=== PATIENT | female | born 2005 | race Caucasian/White ===

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

== ENCOUNTER 2024-05-12 10:36 | Emergency (ER) | payer BC, OTHER ==
[2024-05-12] MEDS ORDERED: IBUPROFEN 200 MG TAB PO ONE (11:11)
[2024-05-12] MEDS ORDERED: KETOROLAC 30 MG/ML INJ ONE (11:15)
[2024-05-12 11:28] LABS: Influenza A Ag Negative; Influenza B Ag Negative; SARS-CoV-2 Antigen Rapid Res Negative (Negative)
[2024-05-12] MEDS ORDERED: NA CHLORIDE 0.9% 1,000 ML ONE (11:35)
[2024-05-12 11:50] LABS: Absolute Lymphocytes (CBC) 0.8 K/uL (0.7-4.9); Absolute Monocytes 0.8 K/uL (0.1-1.3); Basophils % 0.2 % (0-1.3); Eosinophils % 0.1 % (0-4.4); Hemoglobin 14.9 g/dL (12.0-15.0); Lymphocytes % 5.4 % (15.3-44.8); MCH 29.4 pg (27.0-35.0); MCHC 33.7 g/dL (32.0-36.0); MPV 8.3 fL (7.6-11.3); Monocytes % 5.2 % (3.3-12.3); Neutrophils % 89.1 % (41.7-73.7); Nucleated Red Blood Cells % 0.1 % (0-0); Platelets 346 thou/uL (152-406); RBC Red Blood Cell Count 5.06 M/uL (3.86-4.86); Red Cell Distribution Width 13.5 % (12.1-15.2)
[2024-05-12 11:52] LABS: Specific Gravity 1.027 (1.005-1.030)
[2024-05-12 12:06] LABS: Albumin 3.9 g/dL (3.4-5.0); Albumin/Globulin Ratio 0.8 (1.1-1.8); Anion Gap 8.9 mEq/L (5.0-15.0); Bilirubin Total 0.9 mg/dL (0.2-1.0); Globulin 4.6 g/dL (2.3-3.5); Potassium 3.9 mEq/L (3.5-5.1); Protein, Total 8.5 g/dL (6.4-8.2)
[2024-05-12 12:26] LABS: Blood Morphology Comment NOT SEEN (NOT SEEN); Platelet Estimate ADEQ; Platelets Clumped FEW; White Blood Cell Scan OK (OK)
[2024-05-12] MEDS ORDERED: CLINDAMYCIN 600MG/D5W 50 ML IV ONE (13:21)
--- NOTE | 2024-05-12 13:36 | RAD REPORT ---
EXAM: CT Soft Tissue Neck W/Contr INDICATION: SWELLING TECHNIQUE: Helical CT examination of the neck with IV contrast. Not reported Sagittal and coronal ref ormations were generated. This exam was performed according to our departmental dose-optimization program, which includes automated exposure control, adjustment of the mA and/or kV according to patie nt size and/or use of iterative reconstruction technique. COMPARISON: None. FINDINGS: Mucosal spaces: Mild mucosal symmetric hyperenhancement of the palatine tonsils. No adjacent fluid co llections or fat stranding. Nasopharynx, oral cavity, larynx and hypopharynx are normal. No suspicious masses. Epiglottis is normal in configuration. True vocal cords cords are normally situate d. Piriform sinuses are well-aerated. Lymph Nodes: Prominent bilateral level 2A lymph nodes, measuring up to 1.2 cm in short axis on the le ft and 9 mm on the right. Salivary Glands: Unremarkable. Thyroid Gland: Normal Included Intracranial Structures: Normal Included Orbits: Normal Paranasal Sinuses: Predominantly clear Tympanomastoid Cavities: Normal Vascular Structures: Normal Osseous Structures: No acute osseous abnormality. Included Lung Apices: Normal IMPRESSION: Prominent bilateral discrete upper cervical lymph nodes, could be reactive or inflammatory. Mild mucosal symmetric hyperenhancement of the palatine tonsils, could reflect uncomplicated tonsilli tis.
--- NOTE | 2024-05-12 13:46 | EDPHYS ---
Physician Documentation [facility] Name: Mervat Mendez Age: 19 yrs Sex: Female : 2005 Arrival Date: 05/12/2024 Time: 10:36 Bed 11 Private MD: ED Physician Lindsey Castañeda HPI: 05/12 11:25 This 19 yrs old Female presents to ER via Ambulatory with complaints of Sore sp3 Throat, Dizziness, Low Back Pain, body aches, Headache. 11:25 19-year-old female with history of anxiety presents to the ED with chief complaint sore sp3 throat, throat swelling, difficulty swallowing, cough and congestion for the last 48 to 72 hours. She denies any fever, chest pain, shortness of breath, abdominal pain, vomiting, diarrhea, rash, known sick contacts, travel history, or any other signs or symptoms on ROS at this time.. 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 - Infectious Disease History:: Denies. - Social history:: Smoking status: Reported history of juuling and/or vaping. ROS: 11:25 Constitutional: Negative for fever, chills, and weight loss, Eyes: Negative for injury, sp3 pain, redness, and discharge, Neck: Negative for injury, pain, and swelling, Cardiovascular: Negative for chest pain, palpitations, and edema, Respiratory: Negative for shortness of breath, cough, wheezing, and pleuritic chest pain, Abdomen/GI: Negative for abdominal pain, nausea, vomiting, diarrhea, and constipation, Back: Negative for injury and pain, MS/Extremity: Negative for injury and deformity, Skin: Negative for injury, rash, and discoloration, Neuro: Negative for headache, weakness, numbness, tingling, and seizure, Psych: Negative for depression, anxiety, suicide ideation, homicidal ideation, and hallucinations, Allergy/Immunology: Negative for hives, rash, and allergies, Endocrine: Negative for neck swelling, polydipsia, polyuria, polyphagia, and marked weight changes, 11:25 All other systems are negative, Exam: 11:26 Constitutional: This is a well developed, well nourished patient who is awake, alert, sp3 and in no acute distress. Head/Face: Normocephalic, atraumatic. Eyes: Pupils equal round and reactive to light, extra-ocular motions intact. Lids and lashes normal. Conjunctiva and sclera are non-icteric and not injected. Cornea within normal limits. Periorbital areas with no swelling, redness, or edema. Neck: Trachea midline, no thyromegaly or masses palpated, and no cervical lymphadenopathy. Supple, full range of motion without nuchal rigidity, or vertebral point tenderness. No Meningismus. Chest/axilla: Normal chest wall appearance and motion. Nontender with no deformity. No lesions are appreciated. Cardiovascular: Regular rate and rhythm with a normal S1 and S2. No gallops, murmurs, or rubs. Normal PMI, no JVD. No pulse deficits. Respiratory: Lungs have equal breath sounds bilaterally, clear to auscultation and percussion. No rales, rhonchi or wheezes noted. No increased work of breathing, no retractions or nasal flaring. Abdomen/GI: Soft, non-tender, with normal bowel sounds. No distension or tympany. No guarding or rebound. No evidence of tenderness throughout. Back: No spinal tenderness. No costovertebral tenderness. Full range of motion. Skin: Warm, dry with normal turgor. Normal color with no rashes, no lesions, and no evidence of cellulitis. MS/ Extremity: Pulses equal, no cyanosis. Neurovascular intact. Full, normal range of motion. Neuro: Awake and alert, GCS 15, oriented to person, place, time, and situation. Cranial nerves II-XII grossly intact. Motor strength 5/5 in all extremities. Sensory grossly intact. Cerebellar exam normal. Normal gait. Psych: Awake, alert, with orientation to person, place and time. Behavior, mood, and affect are within normal limits. 11:26 ENT: Left-sided peritonsillar swelling with uvular shift. Patient still tolerating p.o. Mildly tachycardic.. Vital Signs: 10:49 BP 114 / 78; Pulse 108; Resp 16; Temp 98.9(O); Pulse Ox 100% on R/A; Weight 48.99 kg; hb Height 5 ft. 6 in. ; Pain 8/10; 14:02 BP 99 / 55; Pulse 100; Resp 16; Temp 98.3(O); Pulse Ox 99% on R/A; Pain 3/10; ll1 10:49 Body Mass Index 17.43 (48.99 kg, 167.64 cm) hb 10:49 Pain Scale: Adult hb 14:02 Pain Scale: Adult ll1 MDM: 10:46 Medical Screening Exam initiated sp3 11:26 Data reviewed: vital signs, nurses notes, lab test result(s), radiologic studies. ED sp3 course: 19-year-old female with sore throat and URI symptoms. Differential diagnosis includes peritonsillar abscess, tonsillitis, strep pharyngitis, influenza, COVID-19, among others. Workup include CT scan of the soft tissue neck, swabs and treatment with ketorolac and other medications as indicated. Disposition pending workup and patient course.. 13:45 ED course: CT demonstrates no abscess only localized tonsillitis and lymph node sp3 swelling. Patient getting 600 mg of clindamycin IV and will be discharged home on oral meds.. 05/12 10:47 Order name: Group A Streptococcus Rapid; Complete Time: 11:33 sp3 05/12 10:47 Order name: COVID-19 Ag + Flu A+B Ag; Complete Time: 11:33 sp3 05/12 11:32 Order name: CBC with Diff; Complete Time: 12:31 sp3 05/12 11:32 Order name: CMP; Complete Time: 12:09 sp3 05/12 11:32 Order name: Test, Urine; Complete Time: 12:09 sp3 05/12 12:26 Order name: CBC Smear Scan; Complete Time: 12:31 EDMS 05/12 11:25 Order name: Soft Tissue Neck W/Contr CT; Complete Time: 13:40 sp 05/12 11:32 Order name: IV Saline Lock; Complete Time: 11:45 sp3 05/12 11:32 Order name: Labs collected and sent; Complete Time: 11:45 sp3 Administered Medications: 11:19 Not Given (Other Intervention Used): [id number] mg PO once ss 11:45 Drug: NS 0.9% IV 1000 ml IV at 1 bolus Per protocol; to be given as a bolus over 60 ss minutes Route: IV; Rate: 1 bolus; Site: right antecubital; 13:26 Follow up: Response: No adverse reaction; IV Status: Completed infusion; IV Intake: ll1 1000ml 11:58 Drug: Ketorolac IVP 15 mg IVP once Route: IVP; Site: right antecubital; ss 12:27 Follow up: Response: No adverse reaction ss 13:26 Drug: Clindamycin IVPB 600 mg IVPB once over 30 mins; (mix in 50 mL) Route: IVPB; ll1 Infused Over: 30 mins; Site: right antecubital; 14:04 Follow up: Response: No adverse reaction; IV Status: Completed infusion; IV Intake: [id number] Disposition Summary: 05/12/24 13:45 Discharge Ordered Notes: Location: Home sp3 Condition: Stable sp3 Diagnosis - Tonsillitis sp3 Followup: sp3 - With: Private Physician - When: Upon discharge from the Emergency Department - Reason: Continuance of care Discharge Instructions: - Discharge Summary Sheet sp3 - Tonsillitis sp3 Forms: - Medication Reconciliation Form sp3 - Antibiotic Education sp3 - Prescription Opioid Use sp3 - Patient Portal Instructions sp3 - Leadership Thank You Letter sp3 Prescriptions: - Clindamycin HCl 300 mg Oral Capsule - take 1 capsule ORAL route every 6 hours for 10 days; 40 capsule; Refills: 0, sp3 Product Selection Permitted - Diclofenac Sodium 75 mg Oral Tablet Sustained Release - take 1 tablet ORAL route 2 times per day; 30 tablet; Refills: 0, Product sp3 Selection Permitted Signatures: Dispatcher [employer] EDNae Vance RN RN Genesis Palumbo RN RN hb Lewis, Lynsay, RN RN ll Lindsey Castañeda MD MD sp3 Corrections: (The following items were deleted from the chart) 11:25 11:25 Soft Tissue Neck W/Contr+CT.RAD.BRZ ordered. EDMS EDMS 11:33 11:33 CBC+H.LAB.BRZ ordered. EDMS EDMS 11:33 11:33 COMPREHENSIVE METABOLIC PANEL+C.LAB.BRZ ordered. EDMS EDMS 11:33 11:33 Test, Urine+UC.LAB.BRZ ordered. EDMS EDMS
--- NOTE | 2024-05-12 13:46 | ER ---
Nurse's Notes [facility] Name: Mervat Mendez Age: 19 yrs Sex: Female : 2005 Arrival Date: 05/12/2024 Time: 10:36 Bed 11 Private MD: Diagnosis: Tonsillitis Presentation: 05/12 10:49 Chief complaint: Sore throat x 2 days, body aches and malaise today. Coronavirus hb screen: Client presents with at least one sign or symptom that may indicate coronavirus-19. Provider contacted for isolation considerations. Ebola Screen: No symptoms or risks identified at this time. Initial Sepsis Screen: Does the patient meet any 2 criteria? No. Patient's initial sepsis screen is negative. Does the patient have a suspected source of infection? No. Patient's initial sepsis screen is negative. Risk Assessment: Do you want to hurt yourself or someone else? Patient reports no desire to harm self or others. Onset of symptoms was May 11, 2024. 10:49 Method Of Arrival: Ambulatory hb 10:49 Acuity: DALLIN 4 hb Triage Assessment: 10:50 General: Appears in no apparent distress. Behavior is calm, cooperative. Pain: Pain hb currently is 8 out of 10 on a pain scale. EENT: Reports pain when swallowing. Neuro: Level of Consciousness is awake, alert, obeys commands, Oriented to person, place, time, situation. Cardiovascular: Patient's skin is warm and dry. Respiratory: Respiratory effort is even, unlabored, Respiratory pattern is regular, symmetrical. 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 - Infectious Disease History:: Denies. - Social history:: Smoking status: Reported history of juuling and/or vaping. Screenin:51 [facility] ED Fall Risk Assessment (Adult) History of falling in the last 3 months, hb including since admission No falls in past 3 months (0 pts) Confusion or Disorientation No (0 pts) Intoxicated or Sedated No (0 pts) Impaired Gait No (0 pts) Mobility Assist Device Used No (0 pt) Altered Elimination No (0 pt) Score/Fall Risk Level 0 - 2 = Low Risk Oriented to surroundings, Maintained a safe environment, Educated pt \T\ family on fall prevention, incl call for assistance when getting out of bed. Abuse screen: Denies threats or abuse. Denies injuries from another. Nutritional screening: No deficits noted. Tuberculosis screening: No symptoms or risk factors identified. Assessment: 10:51 General: See triage assessment. hb 11:46 Reassessment: Patient appears in no apparent distress at this time. Patient and/or ss family updated on plan of care and expected duration. Pain level reassessed. Patient is alert, oriented x 3, equal unlabored respirations, skin warm/dry/pink. 11:59 Pain: Complains of pain in throat, low back Pain currently is 8 out of 10 on a pain ss scale. Is continuous. Neuro: Level of Consciousness is awake, alert, obeys commands, Oriented to person, place, time, situation. Respiratory: Airway is patent Respiratory effort is even, unlabored, Respiratory pattern is regular, symmetrical. : No signs and/or symptoms were reported regarding the genitourinary system. Denies burning with urination, urinary frequency. Derm: Skin is pink, warm \T\ dry. normal. 13:26 Reassessment: No changes from previously documented assessment. Patient and/or family ll1 updated on plan of care and expected duration. Pain level reassessed. Patient is alert, oriented x 3, equal unlabored respirations, skin warm/dry/pink. 14:03 Respiratory: Breath sounds are clear bilaterally. ll1 14:04 EENT: Throat is reddened has enlarged tonsils bilaterally. ll1 14:04 Reassessment: No changes from previously documented assessment. Patient and/or family ll1 updated on plan of care and expected duration. Pain level reassessed. Patient is alert, oriented x 3, equal unlabored respirations, skin warm/dry/pink. Patient states feeling better. Vital Signs: 10:49 BP 114 / 78; Pulse 108; Resp 16; Temp 98.9(O); Pulse Ox 100% on R/A; Weight 48.99 kg; hb Height 5 ft. 6 in. ; Pain 8/10; 14:02 BP 99 / 55; Pulse 100; Resp 16; Temp 98.3(O); Pulse Ox 99% on R/A; Pain 3/10; ll1 10:49 Body Mass Index 17.43 (48.99 kg, 167.64 cm) hb 10:49 Pain Scale: Adult hb 14:02 Pain Scale: Adult ll1 ED Course: 10:38 Patient arrived in ED. im 10:38 Lindsey Castañeda MD is Attending Physician. sp3 10:50 Triage completed. hb 10:50 Arm band placed on. hb 10:51 Patient has correct armband on for positive identification. Provided Education on: hb tests, result times. 10:51 No provider procedures requiring assistance completed. Patient did not have IV access hb during this emergency room visit. 11:15 Genesis Palumbo, RN is Primary Nurse. hb 11:40 Inserted saline lock: 22 gauge in right antecubital area, using aseptic technique. ss Blood collected. Flushed with 10 mL NS. 11:45 CBC with Diff Sent. ss 11:45 CMP Sent. ss 11:45 Test, Urine Sent. ss 12:36 Soft Tissue Neck W/Contr CT In Process Unspecified. EDMS Administered Medications: 11:19 Not Given (Other Intervention Used): [id number] mg PO once ss 11:45 Drug: NS 0.9% IV 1000 ml IV at 1 bolus Per protocol; to be given as a bolus over 60 ss minutes Route: IV; Rate: 1 bolus; Site: right antecubital; 13:26 Follow up: Response: No adverse reaction; IV Status: Completed infusion; IV Intake: ll1 1000ml 11:58 Drug: Ketorolac IVP 15 mg IVP once Route: IVP; Site: right antecubital; ss 12:27 Follow up: Response: No adverse reaction ss 13:26 Drug: Clindamycin IVPB 600 mg IVPB once over 30 mins; (mix in 50 mL) Route: IVPB; ll1 Infused Over: 30 mins; Site: right antecubital; 14:04 Follow up: Response: No adverse reaction; IV Status: Completed infusion; IV Intake: [id number] Medication: 10:51 VIS not applicable for this client. hb Intake: 13:26 IV: 1000ml; Total: 1000ml. ll1 14:04 IV: 50ml; Total: 1050ml. ll1 Outcome: 13:45 Discharge ordered by . sp3 14:03 Discharged to home ambulatory, ll1 14:03 Condition: stable 14:03 Discharge instructions given to patient, Instructed on discharge instructions, follow up and referral plans. medication usage, Demonstrated understanding of instructions, follow-up care, medications, Prescriptions given X 2, 14:04 Patient left the ED. ll1 Signatures: Dispatcher [employer] EDMS Nae Christensen RN RN Genesis Palumbo RN RN Zulema Holloway RN RN ll1 Lindsey Castañeda MD MD sp3 Kadi Ma Corrections: (The following items were deleted from the chart) 14:03 14:02 BP 95 / 55; Pulse 100bpm; Resp 16bpm; Pulse Ox 99% RA; Temp 98.3F Oral; Pain ll1 04/29, Adult; ll1
[2024-05-12 14:19] VITALS: BP 99/55; TEMP 98.3; O2SAT 99
== END 2024-05-12 14:04 | disposition home or self-care (01) ==
LOC: ER 10:36
DX: J03.90 Acute tonsillitis, unspecified (principal); Z11.52 Encounter for screening for COVID-19
CPT/HCPCS: 96365; 96361; 85025; 36415; 81025; 80053; 70491; 96375; 99284; 87428; Q9967; J7030